=== PATIENT | female | born 1990 | race Caucasian/White ===

== ENCOUNTER 2025-03-06 07:31 | Emergency (ER) | payer OTHER ==
[~2025-03-06] VITALS: Ht 157.5 cm; Wt 77.1 kg
[2025-03-06 07:40] VITALS: TEMP 97.7
[2025-03-06 09:00] LABS: PREGNANCY TEST URINE QUAL NEGATIVE (NEGATIVE)
[2025-03-06 10:47] VITALS: BP 105/64; O2SAT 99
== END 2025-03-06 10:48 | disposition home or self-care (01) ==
LOC: ER 07:31
DX: T18.9XXA Foreign body of alimentary tract, part unspecified, initial encounter (principal); J06.9 Acute upper respiratory infection, unspecified; Z86.718 Personal history of other venous thrombosis and embolism; Z60.2 Problems related to living alone; Y92.89 Other specified places as the place of occurrence of the external cause; Z20.822 Contact with and (suspected) exposure to COVID-19
CPT/HCPCS: 74018; 84703-TC